=== PATIENT | male | born 1940 | race African-American/Black ===

== ENCOUNTER 2016-06-28 20:20 | Inpatient (IN) ==
--- NOTE | 2016-06-28 20:52 | Emergency Department Note ---
Zelalem Johansen Brittany, am scribing for, and in the presence of, Angela Go DO 20:44. Donavan Johansen Debra, DO, personally performed the services described in this documentation, ascribed by Eugenia Masterson in my presence, and it is both accurate and complete . Arrival - Arrival Chief Complaint: GI Bleed/Rectal Stated Complaint: BLOOD IN BOWELS ED Nursing Triage Note: pt presented to triage ambulatory with c/o blood in stool. pt states blood was bright red. Last C-scope was 2 yrs ago at [facility]. Mode of Arrival: Ambulatory Limitations: No Limitations Source: Patient, RN Notes Reviewed - History of Present Illness HPI Narrative: Mr. Lyon is a pleasant 76 y/o black male presenting to the ED accompanied by his son with c/o hematochezia with an onset of about an hour [employer]. Patient reports that within the last hour he's had two bowel movements with blood ranging in color from bright red to dark red. He states that with initial episode there was not much bleeding, but second episode there was a larger amount. He believes that as of now bleeding may have slacked up some, but still wanted to get checked out. Patient reports a history of GI Bleed and had last C- Scope performed at [facility], but is presenting here tonight due to his being hospitalized here and not wanting to be away from her. Patient denies use of ETOH, ASA, Ibuprofen, or other Anticoagulants. Patient has no other complaint/ pain in the ED. Patient has a past medical history of HTN, NIDDM, Dyslipidemia, Colonoscopy and EGD. Onset (ago): hour(s) (1) Consistency: constant Allergies/Adverse Reactions: Allergies Allergy/AdvReac Type Severity Reaction Status Date / Time No Known Allergies Allergy Unverified 06/28/16 20:30 Review of System - Review of System 12 point system: reviewed and no additional remarkable complaints except as stated - Review of System Constitutional: Absent: chills, diaphoresis, fever Eyes: Absent: vision change Head/Ears/Nose/Throat: Absent: nasal drainage, sore throat Respiratory: Absent: respiratory distress Cardiovascular: Absent: chest pain, palpitations Gastrointestinal: Present: hematochezia. Absent: abdominal pain, nausea, vomiting, diarrhea, constipation Genitourinary male: Absent: urgency, dysuria, frequency Musculoskeletal: Absent: arm pain, back pain, leg pain, neck pain Skin: Absent: rash Neurological: Absent: headache Psychiatric: Absent: anxiety, depression Hematological/Lymphatic: Absent: easy bleeding, easy bruising Medical,Surgical,& Family Hx - Medical History Cardio: History of: Hypertension Endocrine: History of: Diabetes Mellitus (NIDDM), Dyslipidemia - Surgical History Abdominal Surgeries: Surgical HX of: Colonoscopy, EGD - Social History Smoking Status: Never smoker Frequency of Alcohol Use: Rarely Type of Drug Use: None Exam Vital Signs: Vital Signs Temperature 98.3 F 06/28/16 20:25 Pulse Rate 104 H 06/28/16 20:25 Respiratory Rate 18 06/28/16 20:25 Blood Pressure 136/96 06/28/16 20:25 O2 Sat by Pulse Oximetry 100 06/28/16 20:25 - General General appearance: alert, in no apparent distress, cachectic - Head Head exam: Present: atraumatic, normocephalic, normal inspection - Eye Eye exam: Present: normal appearance, PERRL, EOMI - ENT ENT exam: Present: normal exam, normal oropharynx - Neck Neck exam: Present: normal inspection, full ROM, trachea midline - Chest Chest inspection: Present: normal inspection, symmetric chest wall rise - Respiratory Respiratory exam: Present: normal lung sounds bilaterally. Absent: rales, rhonchi, wheezes - Cardiovascular Cardiovascular exam: Present: regular rate, normal rhythm, normal heart sounds. Absent: murmur, rubs, gallop - Abdominal Exam Abdominal exam: Present: soft, normal bowel sounds. Absent: distention, tenderness - Rectal Exam Rectal exam: Present: heme (+) stool - Extremities Exam Extremities exam: Present: normal inspection - Back Exam Back exam: Present: normal inspection - Neurological Exam Neurological exam: Present: alert, oriented X3, CN II-XII intact. Absent: motor sensory deficit - Psychiatric Psychiatric exam: Present: normal affect, normal mood - Skin Skin exam: Present: warm, dry, intact, normal color Course Course Narrative: spoke with Dr Gerber who will admit pt. pt is stable at this time Results - Labs CBC & BMP: 06/28/16 20:40 06/28/16 20:40 Lab Results: I have reviewed the patients labs Labs: Laboratory Tests 06/28/16 20:40 WBC 4.2 RBC 4.05 Hgb 11.4 L Hct 34.9 L MCV 86.2 L Plt Count 101 L Laboratory Tests 06/28/16 20:40 INR 1.0 PT Patient/Control Mix 11.0 Circ Anticoag PTT 25.4 Laboratory Tests 06/28/16 20:40 Sodium 142 Potassium 4.2 Chloride 108 H Carbon Dioxide 24 BUN 19 H Creatinine 1.20 Glucose 209 H Calcium 8.5 ALT 13 L Disposition Clinical Impression: Lower gastrointestinal hemorrhage Case discussed with: patient, patient's family Disposition: Still a Patient Condition: Stable Time of Disposition: 21:51
[2016-06-28 20:57] LABS: Basophils % 0.2 % (0.0-0.8); Eosinophils % 0.9 % (0.00-10.9); Hematocrit 34.9 VOL% (42.0-52.0); Hemoglobin 11.4 GM/DL (14.0-18.0); Immature Granulocytes % 0.2 %; Immature Granulocytes Absolute 0.01 #; Lymphocytes # 1.4 10*3/uL (1.4-4.0); Lymphocytes % 33.1 % (21.2-54.2); Mean Corpuscular HGB Conc 32.7 GM/DL (32-36); Mean Corpuscular Hemoglobin 28 PG (27-34); Mean Corpuscular Volume 86.2 FL (87-102); Mean Platelet Volume 11.8 FL (9.6-12.0); Monocytes # 0.4 10*3/uL (0.11-0.8); Monocytes % 9.7 % (1.7-12.7); Neutrophils # 2.4 10*3/uL (1.4-7.4); Neutrophils % 55.9 % (38.7-73.9); Platelet Count 101 T/CUMM (130-400); Red Blood Count 4.05 MC/CUMM (3.8-5.5); White Blood Count 4.2 T/CUMM (4-12)
[2016-06-28 21:08] LABS: Partial Thromboplastin Time 25.4 SECS (0-40)
[2016-06-28 21:30] LABS: Albumin 3.7 G/DL (3.4-5.0); Bilirubin,Total 0.6 MG/DL (0.2-1.0); Calcium 8.5 MG/DL (8.5-10.1); Osmolality,Calculated 290.1 MOS/KG (273-304); Potassium 4.2 MMOL/L (3.5-5.1); Total Protein 6.5 G/DL (6.4-8.3)
[2016-06-28] MEDS ORDERED: PANTOPRAZOLE 40 MG VIAL IV STA (21:43)
[2016-06-28] MEDS ORDERED: PANTOPRAZOLE 40 MG VIAL IV ONE (21:45)
[2016-06-28] MEDS ORDERED: ALBUTEROL 2.5 MG/3 ML NEB RESP TX PRN (22:20)
[2016-06-28] MEDS ORDERED: GLUCAGON 1 MG VIAL IM PRN (22:20)
[2016-06-28] MEDS ORDERED: ACETAMINOPHEN 325 MG TABLET PO PRN (22:20)
[2016-06-28] MEDS ORDERED: DEXTROSE 50% 25 GM/50 ML VIAL IV PRN (22:20)
[2016-06-28] MEDS ORDERED: ONDANSETRON 4 MG/2 ML VIAL IV PRN (22:20)
[2016-06-28] MEDS ORDERED: SODIUM CHLORIDE 0.9% 250 ML IV PRN (22:36)
--- NOTE | 2016-06-28 22:48 | Hospitalist History & Physical ---
Assessment and Plan (1) Diabetes Status: Acute Current Visit: Yes (2) Includes cholesterol Status: Acute Current Visit: Yes (3) History of prostate cancer Status: Acute Current Visit: Yes (4) Lower gastrointestinal hemorrhage Status: Acute Assessment and plan: Our plan for this patient will be admission to the ICU for closer observation. Serial H&H's will be drawn and patient will be transfused if needed. Will consult GI for their evaluation. I instructed the nurses to call me when home meds are available. Current Visit: Yes History of Present Illness Chief complaint: Lower GI bleed History of present illness: Mr. Lyon is a 76 year old male with past medical history significant for hypertension diabetes includes cholesterol and prostate cancer who reports he was in his normal state of health until approximately 2 hours ago. Patient's been staying in the hospital with his who was hospitalized on the fourth floor. Patient reports having 2 bloody bowel movements while being here. Patient came down to the ER for further evaluation. Patient reports this happened before and it was about 2 years ago. He really has no explanation about what was found. I was consulted to admit him through the emergency room. Per review of the records that showed the Dr. Robledo did a C scope on the patient in 2010. It was believed to be secondary to diverticular disease. It was noted that he had a very tortuous colon. Allergies Allergy/AdvReac Type Severity Reaction Status Date / Time No Known Allergies Allergy Unverified 06/28/16 20:30 Medical,Surgical,& Family Hx - Medical History Cardio: History of: Hypertension Endocrine: History of: Diabetes Mellitus (NIDDM), Dyslipidemia - Surgical History Abdominal Surgeries: Surgical HX of: Colonoscopy, EGD - Social History Smoking Status: Never smoker Frequency of Alcohol Use: Rarely Type of Drug Use: None 12 point system: reviewed and no additional remarkable complaints except as stated Exam - Constitutional Vitals: Period Temp Pulse Resp BP Sys/Manuel Pulse Ox Last 24 Hr 82 120/98 100 - General General appearance: alert, in no apparent distress, cachectic - Head Head exam: Present: atraumatic, normocephalic, normal inspection - Eye Eye exam: Present: normal appearance, PERRL, EOMI - ENT ENT exam: Present: normal exam, normal oropharynx - Neck Neck exam: Present: normal inspection, full ROM, trachea midline - Chest Chest inspection: Present: normal inspection, symmetric chest wall rise - Respiratory Respiratory exam: Present: normal lung sounds bilaterally - Cardiovascular Cardiovascular exam: Present: regular rate, normal rhythm, normal heart sounds. - Abdominal Exam Abdominal exam: Present: soft, normal bowel sounds - Rectal Exam Rectal exam: Present: heme (+) stool per ER physician - Extremities Exam Extremities exam: Present: normal inspection - Back Exam Back exam: Present: normal inspection - Neurological Exam Neurological exam: Present: alert, oriented X3, CN II-XII intact. - Psychiatric Psychiatric exam: Present: normal affect, normal mood - Skin Skin exam: Present: warm, dry, intact, normal color Results - Labs CBC & BMP: 06/28/16 20:40 06/28/16 20:40
[2016-06-29 03:20] LABS: Hematocrit 29.7 VOL% (42.0-52.0); Hemoglobin 9.4 GM/DL (14.0-18.0)
[2016-06-29 04:15] LABS: Calcium 7.8 MG/DL (8.5-10.1); Osmolality,Calculated 292.8 MOS/KG (273-304)
[2016-06-29 06:34] LABS: Hematocrit 29.7 VOL% (42.0-52.0); Hemoglobin 9.5 GM/DL (14.0-18.0)
--- NOTE | 2016-06-29 06:36 | XRay Report ---
Referring Physician: Angela Go DO Exam: XR abdomen 2V Date: June 28, 2016 at 8:49 PM Reason: GI bleed Comparison: CT abdomen May 21, 2015 Findings: There is no evidence of bowel obstruction or free air. The renal shadows are largely obscured, but no definite renal calculi are seen. There is degenerative change and scoliosis at the spine, but no acute osseous process is seen. Scattered arterial calcification is present, and there is a calcified granuloma at the left lung base. Impression: No acute abdominal process is identified. PROCEDURE INTERPRETED AT [facility] DEPARTMENT OF RADIOLOGY Final Report Signed by: Dr. Ag Haywood
[2016-06-29] MEDS: INSULIN REGULAR 100 UNIT/ML SUBCUT SCH ×4 (07:40→21:12)
[2016-06-29 09:21] LABS: Hematocrit 29.3 VOL% (42.0-52.0); Hemoglobin 9.3 GM/DL (14.0-18.0)
[2016-06-29] MEDS: PANTOPRAZOLE 40 MG VIAL IV SCH (12:17)
--- NOTE | 2016-06-29 13:23 | Gastrointestinal Consult Note ---
Assessment and Plan (1) Lower gastrointestinal hemorrhage Status: Acute Assessment and plan: This patient has had a total of 4 bleeds including one at [facility] most recently in the 2012 and 2013 timeframe. All of these bleeds were thought to be secondary to diverticular source. We have never been able to point to the bleeding segment of the colon responsible for the bleeding. Hopefully a tagged red blood cell scan should identify a potential source. If the bleeding is brisk enough we may even consider sending this patient to angiography at this time in order to embolize the bleeding vessel. I do not believe that repeated colonoscopy is going to be helpful given that this would be the patient's fourth for the same issue in the last 10 years. The tagged red blood cell scan and potential delayed imaging have already been written for. We need to continue to watch the hematocrit which at this point appears to be fairly stable. I would like to get the results of the previous colonoscopy done most recently over [facility] to see if any polyps were found or anything else unusual. Upper endoscopy has been looked at his potential source in the past and was found to be negative in 2010. He is not really having any upper symptoms. He does not admit to any trigger foods such as popcorn seeds or nuts that may have caused the current bleeding episode. He is really not having any abdominal pain as might be expected with ischemic colitis, or fever chills to make me believe this might be infectious colitis. If the patient stable tomorrow he can likely be sent up to the floor to be watched for another day prior to potential discharge if the tagged red blood cell scan/delayed imaging appears to be normal. Current Visit: Yes (2) Acute posthemorrhagic anemia Status: Acute Assessment and plan: We will continue to watch the patient's hematocrit would consider transfusing him if he drop below 24%. I will write for some parameters. I would like him to be checked at least once every 12 hours as he appears to be stable. Current Visit: Yes (3) Pancreatic mass Status: Acute Assessment and plan: This patient has a pancreatic mass which is in the tail being followed with serial CT scans both thus far has not shown any enlargement since 2013. Will check a follow-up CA 19-9 for a baseline. Current Visit: Yes (4) Diverticulosis of colon Status: Acute Assessment and plan: Previously found on prior colonoscopies, thought to be the source of the current GI bleeding. Await colonoscopy results from [facility] which we have ordered from the timeframe for inclusion into our records. Current Visit: Yes History of Present Illness Chief complaint: Maroon colored stools over the last 12 hours, hematocrit drop 34%--> 29% History of present illness: Mr. Lyon is a 76 year old male who has a history of previous episodes of bright red blood/maroon colored stools going back to 2006, when the patient underwent colonoscopy by Dr. Robledo on 06/22/06. He had extensive diverticular disease and this was again seen during a follow-up colonoscopy done for acute GI bleeding on 02/21/10. During that colonoscopy the patient's crit dropped from 40% down to 32% with upper endoscopy demonstrating no area of bleeding, colonoscopy demonstrating diverticula again without a great prep, the patient underwent a barium enema to look at the right colon more closely and this did not show any evidence of a cancer. Finally a tagged red blood cell scan was done and this was felt to be negative as well. The patient's colon was extremely tortuous making it more difficult to reach the end of this back in 2010. Patient states that some 3 years after this he underwent to get another colonoscopy at [facility] for another acute GI bleeding episode. It was again thought that he had a diverticular bleed at their institution, I am trying to get the results of that previous colonoscopy for verification. On this admission the patient's hematocrit was noted to be 34.9%, and this dropped down to the 29.3% level and is remained at about this level the rest of these last 12 hours. He does not recall eating a anything spoiled out of the back of the refrigerator, he has not had any foreign travel, he does not recall having fevers or chills nausea or vomiting. He does not have significant reflux. Her medications do not include any anticoagulants. The patient is on metformin but does not complain of diarrhea typically. With the bleeding occurred the patient have the feeling that he needs to evacuate his bowels but no unusual cramping or pain. The stool color at this time is still maroon. He is under some stress with his who is here upon 4 E. status post surgery on her brain tumor, being seen by Dr. Cecil Tam. The patient himself does have a history of a pancreatic tail mass that was discovered back in 2013 and is completely stable when last checked on last CT scan 05/21/[address] Kidd. It has been measured consistently at 2.1 cm. It is thought to be benign. Home Medications Medication Instructions Recorded Confirmed Type Acetaminophen Tab [Tylenol Tab] 500 mg PO Q6HR PRN 06/28/16 06/28/16 History Gabapentin 100 mg PO QPM 06/28/16 06/28/16 History Glimepiride 4 mg PO BID 06/28/16 06/28/16 History Lisinopril 20 mg PO DAILY 06/28/16 06/28/16 History Simvastatin 10 mg PO DAILY 06/28/16 06/28/16 History metFORMIN [Glucophage] 500 mg PO BID W/MEALS 06/28/16 06/28/16 History Allergies Allergy/AdvReac Type Severity Reaction Status Date / Time No Known Allergies Allergy Unverified 06/28/16 20:30 Medical,Surgical,& Family Hx - Medical History Cardio: History of: Hypertension HEENT: History of: Eye Problem, Dental Problems (no teeth, no dentures) Endocrine: History of: Diabetes Mellitus (NIDDM), Dyslipidemia Genitourinary: History of: Prostate Problems (prostate CA with radiation- Dr. Pardo) Gastrointestinal: History of: Diverticulitis/ Diverticulosis, Gastrointestinal Bleed Hematology: History of: Bleeding Problems (hx of mulitple GI bleeds) No history of: Blood Transfusion Reaction - Surgical History HEENT Surgeries: Surgical HX of: Eye Surgery (cataract) Abdominal Surgeries: Surgical HX of: Colonoscopy, EGD - Social History Smoking Status: Never smoker Frequency of Alcohol Use: Rarely Type of Drug Use: None Review of systems: Constitutional: Denies fever, chills, nausea, and vomiting Eyes: Denies dry eyes, and scleral icterus HENT: Denies headaches Cardiovascular: Denies acute chest pain and claudication Respiratory: Denies shortness of breath, wheezing, and difficulty breathing, denies cough Gastrointestinal: As noted in the HPI Genitourinary: Denies dysuria and hematuria Neurologic: Denies vision loss, and loss of sensation Musculoskeletal: Denies joint swelling, but admits to some recent joint stiffness, and muscular weakness Psychiatric: Denies depression and donato symptoms Heme-Lymph: Denies easy bruising, lymph node enlargement or tenderness, night sweats, excessive bleeding Allergies-immunologic: Denies pruritus and rhinorrhea Exam - Constitutional Vitals: Period Temp Pulse Resp BP Sys/Manuel Pulse Ox Last 24 Hr 97.9 F-98.5 F 70-81 16-82 100-173/64-102 99-100 General appearance: normal weight Exam: Constitutional: Well-developed, well-nourished, alert, and in no acute distress Head and face: Head: Normocephalic atraumatic Eyes: Conjunctiva without injection, no gross scleral icterus, pupils equal and round bilaterally Ears: Intact to conversation in both ears Nose: External appearance is normal, nares patent Mouth: Oral mucous membranes moist without erythema dentition noted to be without erosion Neck: Normal appearance, no masses or tenderness, trachea midline Thyroid: Gland midline and appropriate size for age Respiratory: Normal respiratory effort, clear to auscultation without wheezes, rhonchi or rales Cardiovascular: Regular rate and rhythm, normal S1, S2, the exam is without rubs, murmurs or gallops. Gastrointestinal: Nontender to palpation, normal active bowel sounds, tone normal without rigidity or guarding, no masses present, no hepatomegaly, no spleen tip felt. Rectal exam shows grossly guaiac positive maroon stool with a small amount of feces mixed in with large amount of blood. Lymphatic: Neck without adenopathy, axilla without lymphadenopathy present Musculoskeletal: Right and left lower extremities without evidence of edema Skin and subcutaneous tissue: No rashes or ulcerations noted, normal skin turgor, digits and nails without clubbing/cyanosis/deformities. Neurologic: The patient is grossly oriented to person place and time, cranial nerves show tongue movements are normal with normal tongue extrusion midline, light touch sensation is intact. Psychiatric: No hallucinations or delusions are present, does not appear depressed Results - Labs CBC & BMP: 06/29/16 09:03 06/29/16 03:15
[2016-06-29 13:50] LABS: Hematocrit 27.8 VOL% (42.0-52.0); Hemoglobin 9.1 GM/DL (14.0-18.0)
--- NOTE | 2016-06-29 14:14 | Hospitalist Progress Note ---
Assessment and Plan (1) Lower gastrointestinal hemorrhage Status: Acute Assessment and plan: GI consulted Monitor H/H, transfuse as needed History of diverticulosis Current Visit: Yes (2) Diabetes Status: Acute Current Visit: Yes (3) Pancreatic mass Status: Acute Current Visit: Yes Hospitalist: Subjective Interval history: No acute events overnight. Report his last episode of hematochezia was yesterday. GI has been consulted. Continue to monitor H/H, he had a drop since yesterday. Exam - Constitutional Vitals: Period Temp Pulse Resp BP Sys/Manuel Pulse Ox Last 24 Hr 97.9 F-98.5 F 70-81 16-82 100-173/64-102 99-100 General appearance: normal weight - Head Head exam: Present: normocephalic, atraumatic - Eye Eye exam: Present: EOMI Pupils: Present: KALEB - ENT ENT exam: Present: normal exam - Neck Neck exam: Present: normal inspection - Respiratory Respiratory exam: Present: clear to auscultation bilaterally. Absent: rhonchi, wheezes - Cardiovascular Cardiovascular exam: Present: regular rate and rhythm - GI/Abdominal GI/Abdominal exam: Present: normal bowel sounds, soft. Absent: tenderness, rebound - Extremities Exam Extremities exam: Present: normal inspection - Back Exam Back exam: Present: normal inspection - Neurological Exam Neurological exam: Present: alert, oriented X3 - Psychiatric Psychiatric exam: Present: normal affect, normal mood - Skin Skin exam: Present: warm, intact Results - Labs CBC & BMP: 06/29/16 13:46 06/29/16 03:15
--- NOTE | 2016-06-29 15:40 | Nuclear Medicine Report ---
NM GI bleeding Indication: Probable diverticulosis with hemorrhage. Hematochezia. Comparison: None. Technique: Following intravenous administration of 20 mCi of technetium 99m labeled red blood cells utilizing 3 mL PYP, planar images in the anterior projection were captured and stored at 2 second intervals for 2 minutes, followed by one minute intervals for the remainder of one hour. Findings: There is no evidence of active GI hemorrhage on the provided images. In addition to static images provided, cine images were reviewed on nuclear medicine workstation. Impression: 1. No scintigraphic activity to suggest active GI hemorrhage. 06/29/2016 3:35 PM PROCEDURE INTERPRETED AT [facility] DEPARTMENT OF RADIOLOGY Final Report Signed by: Dr. Diony Nguyen
[2016-06-29] MEDS: POLYETHYLENE GLYCOL POWDER 17 GM PACK PO SCH ×2 (16:57→21:11)
[2016-06-30] MEDS: PANTOPRAZOLE 40 MG VIAL IV SCH ×2 (01:01→11:57)
[2016-06-30 01:54] LABS: Hematocrit 27.6 VOL% (42.0-52.0)
[2016-06-30 06:00] LABS: Basophils % 0.3 % (0.0-0.8); Eosinophils % 1.1 % (0.00-10.9); Hematocrit 27.1 VOL% (42.0-52.0); Hemoglobin 8.7 GM/DL (14.0-18.0); Immature Granulocytes % 0.3 %; Immature Granulocytes Absolute 0.01 #; Lymphocytes # 1.5 10*3/uL (1.4-4.0); Lymphocytes % 39.7 % (21.2-54.2); Mean Corpuscular HGB Conc 32.1 GM/DL (32-36); Mean Corpuscular Hemoglobin 28 PG (27-34); Mean Corpuscular Volume 87.7 FL (87-102); Mean Platelet Volume 11.8 FL (9.6-12.0); Monocytes # 0.3 10*3/uL (0.11-0.8); Monocytes % 8.2 % (1.7-12.7); Neutrophils # 1.9 10*3/uL (1.4-7.4); Neutrophils % 50.4 % (38.7-73.9); Red Blood Count 3.09 MC/CUMM (3.8-5.5); White Blood Count 3.8 T/CUMM (4-12)
[2016-06-30 06:05] LABS: Platelet Count 89 T/CUMM (130-400)
[2016-06-30 06:21] LABS: Hypochromasia 1+; Ovalocytes Slight; Platelet Estimate Decreased
[2016-06-30 06:37] LABS: Calcium 8.4 MG/DL (8.5-10.1); Potassium 3.9 MMOL/L (3.5-5.1)
--- NOTE | 2016-06-30 08:20 | Nuclear Medicine Report ---
Referring Physician: Kendell Escalante Exam: NM GI bleeding delayed Date: June 30, 2016 Reason: Probable diverticular bleeding Comparison: Nuclear medicine GI bleeding scan June 29, 2016 Technique: An anterior image of the abdomen was acquired 15 hours after a GI bleeding scan. Findings: There is physiologic radiotracer activity within the vasculature, liver, spleen and urinary tract. There is no evidence of an active GI bleed. Impression: There is no evidence of an active GI bleed. PROCEDURE INTERPRETED AT [facility] DEPARTMENT OF RADIOLOGY Final Report Signed by: Dr. Ag aHywood
--- NOTE | 2016-06-30 08:50 | Hospitalist Progress Note ---
Hospitalist: Subjective Interval history: Pt had a tagged RBC scan done this am which was negative. No further melena or BRBPR noted. No lightheadedness or dizziness. No abd pain, nausea or vomiting. Tolerating clear diet. Exam - Constitutional Vitals: Period Temp Pulse Resp BP Sys/Manuel Pulse Ox Last 24 Hr 97.8 F-98.8 F 61-82 11-24 110-161/53-100 97-100 Exam: A and O x 3 RRR no M CTAB nonlabored Soft, NT, ND, +BS Warm no c/c/e Results - Labs CBC & BMP: 06/30/16 05:08 06/30/16 05:08 - Impressions (1) Lower gastrointestinal hemorrhage suspect due to diverticulosis Status: Acute Assessment and plan: - Pt is HD stable. - GI consulted. - RBC tagged scan negative. Transfer to floor. - Monitor H/H, transfuse as needed if Hct <28 - Cont PPI q12h - Clear liquid diet. Consider advancing if ok with GI Current Visit: Yes (2) Acute blood loss anemia due to GIB - transfuse as needed. Monitor H and H. Seems stable at this time. (3) Diabetes mellitus type 2 Status: Chronic Current Visit: Yes start I.S.S. Susan redmond,puja (4) Pancreatic mass Status: Chronic Current Visit: Yes - F/u CA- 19-9 (5) Essential HTN DVT prophylaxis- SCDs D/W pt and nurse. Ok to transfer to floor.
[2016-06-30] MEDS: INSULIN REGULAR 100 UNIT/ML SUBCUT SCH ×4 (09:00→22:47)
[2016-06-30] MEDS: POLYETHYLENE GLYCOL POWDER 17 GM PACK PO SCH ×3 (09:01→20:52)
[2016-06-30 13:51] LABS: Hematocrit 27.2 VOL% (42.0-52.0); Hemoglobin 8.8 GM/DL (14.0-18.0)
--- NOTE | 2016-06-30 18:54 | Gastrointestinal Progress Note ---
Assessment and Plan (1) Lower gastrointestinal hemorrhage Status: Acute Assessment and plan: This patient has had a total of 4 bleeds including one at [facility] most recently in the 2012 and 2013 timeframe. All of these bleeds were thought to be secondary to diverticular source. We have never been able to point to the bleeding segment of the colon responsible for the bleeding. Hopefully a tagged red blood cell scan should identify a potential source. If the bleeding is brisk enough we may even consider sending this patient to angiography at this time in order to embolize the bleeding vessel. I do not believe that repeated colonoscopy is going to be helpful given that this would be the patient's fourth for the same issue in the last 10 years. The tagged red blood cell scan and potential delayed imaging have already been written for. We need to continue to watch the hematocrit which at this point appears to be fairly stable. I would like to get the results of the previous colonoscopy done most recently over [facility] to see if any polyps were found or anything else unusual. Upper endoscopy has been looked at his potential source in the past and was found to be negative in 2010. He is not really having any upper symptoms. He does not admit to any trigger foods such as popcorn seeds or nuts that may have caused the current bleeding episode. He is really not having any abdominal pain as might be expected with ischemic colitis, or fever chills to make me believe this might be infectious colitis. If the patient stable tomorrow he can likely be sent up to the floor to be watched for another day prior to potential discharge if the tagged red blood cell scan/delayed imaging appears to be normal. 06/30/16--The patient is doing well over the evening time. There did not appear to be any gross evidence of bleeding of a tagged red blood cell scan nor on the follow-up delayed imaging. He has not noticed extensive blood in the commode, it appears this episode is doing well as his hematocrit is also stable at 27%. If he is doing this well tomorrow and is not passing any further blood he could likely be discharged home. Will hold off on repeating colonoscopy. Current Visit: Yes (2) Acute posthemorrhagic anemia Status: Acute Assessment and plan: We will continue to watch the patient's hematocrit would consider transfusing him if he drop below 24%. I will write for some parameters. I would like him to be checked at least once every 12 hours as he appears to be stable. 06/30/16--The patient's hematocrit is remained stable at 27%. Parameters have been written for. He may be able to go home tomorrow if he is stable. Current Visit: Yes (3) Pancreatic mass Status: Acute Assessment and plan: This patient has a pancreatic mass which is in the tail being followed with serial CT scans both thus far has not shown any enlargement since 2013. Will check a follow-up CA 19-9 for a baseline. 06/30/16--This is stable according to previous CT scans. Current Visit: Yes (4) Diverticulosis of colon Status: Acute Assessment and plan: Previously found on prior colonoscopies, thought to be the source of the current GI bleeding. Await colonoscopy results from [facility] which we have ordered from the timeframe for inclusion into our records. 06/30/16--Still waiting on these records to include in case this happens again. Current Visit: Yes Gastroenterology - PN: Subj Interval history: Feels good today, slightly darker stools than usual, but no gross evidence of blood. The initial tagged red blood cell scan failed to show a bleeding source and a follow-up 15 hour scan again failed to show significant blood trail in the GI tract. The patient is thought to have a diverticular bleed which appears to have stopped spontaneously as it has in the past. The patient has been admitted 3 previous times with the same picture, unfortunately. He is hungry and would like to advance his diet. Exam (Progress Note) - Constitutional Vitals: Period Temp Pulse Resp BP Sys/Manuel Pulse Ox Last 24 Hr 97.5 F-98.8 F 61-85 11-25 114-161/53-100 97-100 General appearance: no acute distress - Head Head exam: Present: normocephalic - Eye Eye exam: Present: EOMI - Respiratory Respiratory exam: Present: clear to auscultation bilaterally. Absent: rhonchi, stridor, wheezes - Cardiovascular Cardiovascular exam: Present: regular rate and rhythm - GI/Abdominal GI/Abdominal exam: Present: normal bowel sounds, soft. Absent: distended, guarding, tenderness, rebound - Extremities Exam Extremities exam: Absent: edema - Neurological Exam Neurological exam: Present: alert, oriented X3 - Psychiatric Psychiatric exam: Present: normal affect, normal mood - Skin Skin exam: Present: warm Results - Labs CBC & BMP: 06/30/16 13:31 06/30/16 05:08
[2016-06-30] MEDS ORDERED: GABAPENTIN 100 MG CAPSULE PO SCH (19:00)
[2016-07-01 02:11] LABS: Hematocrit 29.4 VOL% (42.0-52.0); Hemoglobin 9.4 GM/DL (14.0-18.0)
[2016-07-01] MEDS: POLYETHYLENE GLYCOL POWDER 17 GM PACK PO SCH ×2 (08:53→15:28)
[2016-07-01] MEDS: INSULIN REGULAR 100 UNIT/ML SUBCUT SCH ×2 (08:53→11:59)
[2016-07-01] MEDS ORDERED: SIMVASTATIN 10 MG TABLET PO SCH (09:00)
[2016-07-01] MEDS ORDERED: PANTOPRAZOLE 40 MG TABLET PO SCH (09:00)
--- NOTE | 2016-07-01 13:06 | Discharge Summary ---
Hospital Course - Hospital Course Hospital Course: Patient is a 76-year-old -[place] male with a history of diverticulosis and recurrent GI bleeding likely due to this who presented to the hospital with a chief complaint of rectal bleeding. GI was consulted to assist with the management of this patient. A RBC tagged scan was negative. He was started on Protonix twice a day and a clear diet and was advanced as he tolerated. No further bleeding was noted during hospitalization. GI recommended since he had recently had a colonoscopy and that this was his fourth bleed within the last year and they have been unable to locate a source that he did not require inpatient endoscopy. Serial H&H's remained stable. For diabetes mellitus type 2, patient was started on insulin sliding scale and Accu-Cheks before meals and at bedtime. CT of the abdomen and pelvis showed a chronic pancreatic mass measuring 2.[address] report said that this had not changed. A CA 19-9 level was obtained and was noted to be undetectable. For hypertension, his blood pressure was controlled off of his home regimen. Once he was cleared by GI, patient was discharged home. He was instructed to avoid all NSAIDs, aspirin, blood thinners. CBC recommended in 1 week. - Time spent with patient Time with patient DS: Greater than 30 minutes (35 minutes) Diagnosis - Discharge Diagnosis (1) Lower gastrointestinal hemorrhage Status: Resolved (2) Diabetes Status: Chronic (3) History of prostate cancer Status: Chronic (4) Pancreatic mass Status: Chronic (5) Acute posthemorrhagic anemia Status: Resolved (6) Diverticulosis of colon Status: Chronic Specialty Discharge - Follow Up or Referrals Follow up with: md, pcp [Other] - 1 Week Discharge Plan - Discharge Data Condition at Discharge: Stable (soft diet) Activity: other (avoid NSAIDS, ASA, blood thinners and alcohol) Contact your physician if you experience:: fever over 101, Difficulty voiding, Redness or swelling, Shortness of breath, Bleeding, pain uncontrolled by pain medications - Discharge Medications No Action Acetaminophen Tab [Tylenol Tab] 500 mg PO Q6HR PRN PRN Reason: Pain Mild (1-3) And/Or Fever Gabapentin 100 mg PO QPM Glimepiride 4 mg PO BID Simvastatin 10 mg PO DAILY metFORMIN [Glucophage] 500 mg PO BID W/MEALS Lisinopril 20 mg PO DAILY - Follow Up or Referral - Forms/Instructions Additional Discharge Instructions: cbc in 1 week Exam - Constitutional Vitals: Period Temp Pulse Resp BP Sys/Manuel Pulse Ox Last 24 Hr 96.4 F-98.5 F 68-101 18-20 123-161/67-72 96-97 Exam: see progress note from 06/30 as exam is unchanged Discharge Results Labs on day of discharge: Labs from last 24 hours 07/01/16 07/01/16 07/01/16 11:49 08:20 01:56 Hgb 9.4 L Hct 29.4 L POC Glucose 162 H 224 H CA 19-9 Antigen 07/01/16 06/30/16 06/30/16 01:56 21:46 16:11 Hgb Hct POC Glucose 197 H 65 L CA 19-9 Antigen < 0.0 L 06/30/16 13:31 Hgb 8.8 L Hct 27.2 L POC Glucose CA 19-9 Antigen DS: Provider Date of admission: 06/28/16 21:49 Primary care physician: . 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
[2016-07-01 14:03] VITALS: BP 138/68
== END 2016-07-01 16:25 | disposition home or self-care (01) | DRG 378 ==
LOC: N.ED 20:20 → N.EDINP 21:49 → SUATTDRO 21:49 → N.ICU 22:08 → N.4E 06-30 13:50
PROVIDERS: ADMIT Internal Medicine; ATTEND Pediatrics